=== PATIENT | male | born 1945 | race Caucasian/White ===

== ENCOUNTER → 2018-08-11 | Outpatient (CLI) | payer MEDICARE, MEDICAID ==
[~2018-08-11] MED LIST: BARIUM SUSPENSION 2.1% (VANILLA SILQ) 450 ML PO ONE
[2018-08-11 11:25] LABS: BASOPHILS % (AUTO) 1 % (0-10); EOSINOPHILS % (AUTO) 6 % (0-10); HEMATOCRIT 47 % (40-54); HEMOGLOBIN 14.8 G/DL (13.3-17.7); LYMPHOCYTES % (AUTO) 24 % (12-44); MEAN CORPUSCULAR HEMOGLOBIN 28 PG (25-34); MEAN CORPUSCULAR HGB CONC 32 G/DL (32-36); MEAN CORPUSCULAR VOLUME 89 FL (80-99); MEAN PLATELET VOLUME 9.4 FL (7.4-10.4); MONOCYTES % (AUTO) 6 % (0-12); NEUTROPHILS % (AUTO) 63 % (42-75); PLATELET COUNT 174 10^3/uL (130-400); RED CELL DISTRIBUTION WIDTH 16.1 % (10.0-14.5); WHITE BLOOD COUNT 9.1 10^3/uL (4.3-11.0)
[2018-08-11 11:26] LABS: BASOPHILS # (AUTO) 0.1 10^3/uL (0.0-0.1); EOSINOPHILS # (AUTO) 0.6 10^3/uL (0.0-0.3); LYMPHOCYTES # (AUTO) 2.2 X 10^3 (1.0-4.0); MONOCYTES # (AUTO) 0.6 X 10^3 (0.0-1.0); NEUTROPHILS # (AUTO) 5.7 X 10^3 (1.8-7.8)
[2018-08-11 12:17] LABS: POTASSIUM 5.4 MMOL/L (3.6-5.0)
[2018-08-11 12:18] LABS: BILIRUBIN,TOTAL 0.4 MG/DL (0.1-1.0); CALCIUM 9.1 MG/DL (8.5-10.1); CREATININE SERUM 2.17 MG/DL (0.60-1.30)
[2018-08-11 12:19] LABS: ALBUMIN 3.9 GM/DL (3.2-4.5); TOTAL PROTEIN 6.8 GM/DL (6.4-8.2)
--- NOTE | 2018-08-11 15:57 | Diagnostic Imaging Report ---
PROCEDURE: CT abdomen and pelvis without contrast. TECHNIQUE: Multiple contiguous axial images were obtained through the abdomen and pelvis without the use of intravenous contrast. Auto Exposure Controls were utilized during the CT exam to meet ALARA standards for radiation dose reduction. INDICATION: Colon cancer. FINDINGS: The previous CT abdomen/pelvis exam performed at [facility] in [place], [place] dated 08/14/2017 was reviewed. That study noted a stable appearance of bilateral hydronephrosis and hydroureter as well as thickening of the urinary bladder wall when compared to the previous exam of 12/10/2016. On this exam, the renal pelvis do appear more distended than on the prior exam. The left renal pelvis measures approximately 2.9 cm in maximum transverse diameter as opposed to 2.5 cm previously. The right renal pelvis is now estimated to be 2.5 cm in maximum diameter as opposed to 1.9 cm previously. The ureters are also slightly more distended than on the prior exam. There is persistent thickening of the urinary bladder wall. This finding is essentially no different. 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 The previous study also identified a stable-appearing mass along the posterior aspect of the gastric fundus. That mass is again identified and virtually unchanged in size or appearance. The mass measures approximately 4.2 x 4.5 cm. The bulky left adrenal gland noted previously is also unchanged. The right adrenal gland, the liver, the spleen, the pancreas, the gallbladder, the aorta and inferior vena cava also seem similar to the prior exam. The stomach is partially filled with oral contrast and consequently difficult to assess. There is no obvious gastric abnormality evident. There is no pelvic mass or free fluid collection noted. The prostate gland is unremarkable. There may be a few diverticula in the sigmoid colon, but there is no sign of acute diverticulitis. The appendix was not well visualized, but there are no indirect signs of acute appendicitis. As noted on the prior study, there is thinning of the anterior abdominal wall near the umbilicus. There is still no defect in the wall to indicate a hernia. The lung bases are generally clear. The bone windows show no sign of a fracture or of a destructive lesion. IMPRESSION: 1. The hydronephrosis of the kidneys seen previously is somewhat more pronounced on this exam. The ureters are also slightly more distended than on the prior exam. The thickened appearance of the bladder wall seen on the previous study is unchanged, however. The bladder diverticulum on the right also seems stable. 2. The mass in the left upper quadrant noted previously is stable in size and appearance. 3. There is no acute abnormality of the abdomen or pelvis noted. Dictated by: Dictated on workstation # [id number]
== END ==
LOC: RAD FS 10:45
PROVIDERS: ATTEND Internal Medicine Hematology & Oncology
DX: C18.4 Malignant neoplasm of transverse colon (principal)
CPT/HCPCS: 36415; 74176; 80053; 82378; 83615; 85025

== ENCOUNTER → 2018-08-18 | Outpatient (CLI) | payer MEDICARE, MEDICAID ==
[~2018-08-18] VITALS: Ht 170.2 cm; Wt 135.6 kg
[~2018-08-18] MED LIST changes: -BARIUM SUSPENSION 2.1% (VANILLA SILQ) 450 ML PO ONE; +CATHETER FLUSH 10 ML SYR IV PRN; +REGADENOSON 0.4 MG/5 ML SYR (LEXISCAN) IV ONE
== END ==
LOC: CARD 10:35 → EDUNIT# 11:00
PROVIDERS: ATTEND Nurse Practitioner Family
DX: R07.89 Other chest pain (principal); R06.09 Other forms of dyspnea; I10 Essential (primary) hypertension; E78.5 Hyperlipidemia, unspecified; G47.33 Obstructive sleep apnea (adult) (pediatric); M79.89 Other specified soft tissue disorders; E66.01 Morbid (severe) obesity due to excess calories
CPT/HCPCS: 78452; 93017; 93306

== ENCOUNTER → 2019-05-03 | Outpatient (CLI) | payer MEDICARE, MEDICAID ==
--- NOTE | 2019-05-03 15:09 | Diagnostic Imaging Report ---
PROCEDURE: US Renal Bilateral. TECHNIQUE: Multiple real-time grayscale images were obtained over the kidneys in various projections bilaterally. INDICATION: Chronic kidney disease, stage IV. FINDINGS: The right kidney measures 10.7 x 5.6 x 5.7 cm and the left kidney measures 12.4 x 6.4 x 6.0 cm. There appear to be bilateral renal cysts. Largest cyst on the right is 1.9 cm in the upper pole. Largest cyst on the left is approximately 3.6 cm in the lower pole. No definite calculi or hydronephrosis is seen. Cortical thickness and echogenicity is normal. Partially filled urinary bladder is unremarkable. The ureteral jets are not visualized. IMPRESSION: Bilateral renal cystic disease. No hydronephrosis is detected. Dictated by: Dictated on workstation # [id number]
== END ==
LOC: RAD 11:23
PROVIDERS: ATTEND Internal Medicine Critical Care Medicine
DX: N18.4 Chronic kidney disease, stage 4 (severe) (principal); N28.1 Cyst of kidney, acquired
CPT/HCPCS: 76770

== ENCOUNTER → 2019-08-30 | Outpatient (CLI) | payer MEDICARE, MEDICAID ==
[~2019-08-30] MED LIST changes: +BARIUM SUSPENSION 2.1% (VANILLA SILQ) 450 ML PO ONE; -CATHETER FLUSH 10 ML SYR IV PRN; -REGADENOSON 0.4 MG/5 ML SYR (LEXISCAN) IV ONE
--- NOTE | 2019-08-30 10:52 | Diagnostic Imaging Report ---
PROCEDURE: CT abdomen and pelvis without contrast. TECHNIQUE: Multiple contiguous axial images were obtained through the abdomen and pelvis without the use of intravenous contrast. Auto Exposure Controls were utilized during the CT exam to meet ALARA standards for radiation dose reduction. INDICATION: Colon carcinoma, followup. COMPARISON: 08/11/2018. FINDINGS: Imaging through the lung bases does show some linear atelectasis or scarring in the bilateral lower lobes and right middle lobe. No discrete liver mass is detected. The gallbladder is unremarkable. No biliary ductal dilatation is seen. The pancreas and spleen are unremarkable. The previously noted mass posterior to the stomach with some peripheral calcification measures approximately 4.8 x 3.8 cm. This is stable when measured by the same technique. The adrenal glands are stable. The bilateral hydroureteronephrosis appears stable. The ureters are somewhat tortuous. The bladder wall again just shows some trabeculation and thickening. There is a small bladder diverticulum again noted. The aorta is calcified but nonaneurysmal. No central retroperitoneal or mesenteric lymphadenopathy is identified. The small and large bowel loops are of normal caliber. There is no obstruction. There is no free fluid or fluid collection. The prostate is unremarkable. No pelvic lymphadenopathy is seen. IMPRESSION: Stable noncontrast CT abdomen and pelvis when compared with the prior examination from 08/11/2018. No new abnormality is detected. Dictated by: Dictated on workstation # [id number]
== END ==
LOC: RAD FS 09:19
PROVIDERS: ATTEND Internal Medicine Hematology & Oncology
DX: C18.4 Malignant neoplasm of transverse colon (principal)
CPT/HCPCS: 74176

== ENCOUNTER 2019-10-19 11:39 | Emergency (ER) | payer MEDICARE, MEDICAID ==
[~2019-10-19] VITALS: Ht 170.2 cm; Wt 125.5 kg
[2019-10-19] MEDS ORDERED: NS IV 500 ML 500 ML IV STA (11:43)
--- NOTE | 2019-10-19 11:50 | ED General ---
General Stated Complaint: WEAKNESS Source of Information: Patient, EMS, EMS Notes Reviewed, Old Records, RN/MD, RN Notes Reviewed History of Present Illness Date Seen by Provider: Oct 19, 2019 Time Seen by Provider: 11:40 Initial Comments This patient is a 74-year-old male that presents to the emergency department via EMS for generalized weakness. Patient states she just complains of weakness and fatigue over the past several days. Patient states he recently had pneumonia and has recently got over that presents complaining complaining of fatigue for the past few days. Patient denies have any cough congestion or fever at this time. Patient states she's had about a 20 pound weight loss in the past month. Patient has a history of cardiac disease. We'll do medical screening exam and evaluate treat further. Patient denies chest pain. Timing/Duration: 3-4 Days Severity: Mild Associated Systoms: Denies Symptoms; No Chest Pain, No Cough, No Diaphoresis, No Fever/Chills, No Headaches, No Loss of Appetite; Malaise; No Nausea/Vomiting, No Rash, No Seizure, No Shortness of Air, No Syncope; Weakness; No Other Allergies and Home Medications Allergies Coded Allergies: iodine (Unverified Allergy, Unknown, 08/11/18) morphine (Verified Allergy, Unknown, 10/19/19) Patient Home Medication List Home Medication List Reviewed: Yes Review of Systems Review of Systems Constitutional: No no symptoms reported; see HPI; No chills, No diaphoresis, No dizziness, No fever; malaise, weakness; No weight gain, No weight loss, No other EENTM: No see HPI, No no symptoms reported, No ear discharge, No hearing loss, No ear pain, No blurred vision, No double vision, No eye pain, No tearing, No vision loss, No dental problems, No hoarseness, No mouth pain, No mouth swelling, No epistaxis, No nose congestion, No nose pain, No throat pain, No throat swelling, No other Respiratory: No no symptoms reported, No see HPI, No cough, No dyspnea on exertion, No hemoptysis, No orthopnea, No phlegm, No short of breath, No stridor, No wheezing, No other Cardiovascular: No no symptoms reported, No see HPI, No chest pain, No edema, No Hx of Intervention, No palpitations, No syncope, No vascular heart diseas, No other Gastrointestinal: No RUQ, No LUQ, No RLQ, No LLQ, No no symptoms reported, No see HPI, No abdominal pain, No constipation, No diarrhea, No dysphagia, No hematemesis, No heartburn, No jaundice, No loss of appetite, No melena, No nausea, No vomiting, No other Genitourinary: No no symptoms reported, No see HPI, No decreased output, No discharge, No dysuria, No frequency, No hematuria, No hesitancy, No incontinence, No nocturia, No pain, No other Musculoskeletal: No no symptoms reported, No see HPI, No back pain, No gout, No joint pain, No joint swelling, No muscle pain, No muscle stiffness, No muscle cramps, No muscle twitching, No muscle weakness, No neck pain, No other Skin: No no symptoms reported, No see HPI, No change in color, No change in hair/nails, No dryness, No hx of skin cancer, No lesions, No lumps, No pruritus, No rash, No other All Other Systems Reviewed Negative Unless Noted: Yes Physical Exam Vital Signs Vital Signs - First Documented 10/19/19 12:00 Temp 36.4 Pulse 84 Resp 20 B/P (MAP) 99/55 (70) Pulse Ox 95 O2 Delivery Room Air Capillary Refill : Height, Weight, BMI Height: 5'7.00" Weight: 299lbs. 0.0oz. 135.361539xt; 46.8 BMI Method: General Appearance: No Apparent Distress, WD/WN HEENT: PERRL/EOMI, TMs Normal, Normal ENT Inspection, Pharynx Normal Neck: Full Range of Motion, Normal Inspection, Non Tender, Supple Respiratory: Chest Non Tender, Lungs Clear, Normal Breath Sounds, No Accessory Muscle Use, No Respiratory Distress Cardiovascular: Regular Rate, Rhythm, No Edema, No Gallop, No JVD, No Murmur, Normal Peripheral Pulses Gastrointestinal: Normal Bowel Sounds, No Organomegaly, No Pulsatile Mass, Non Tender, Soft Extremity: Normal Capillary Refill, Normal Inspection, Normal Range of Motion, Non Tender, No Calf Tenderness, No Pedal Edema Neurologic/Psychiatric: Alert, Oriented x3, No Motor/Sensory Deficits, Normal Mood/Affect Focused Exam Lactate Level 10/19/19 12:15: Lactic Acid Level 0.91 Lactic Acid Level Laboratory Tests Test 10/19/19 12:15 Lactic Acid Level 0.91 MMOL/L (0.50-2.00) Progress/Results/Core Measures Suspected Sepsis SIRS Temperature: Pulse: Respiratory Rate: Laboratory Tests 10/19/19 12:15: White Blood Count 12.2H Blood Pressure / Mean: 10/19/19 12:15: Lactic Acid Level 0.91 Laboratory Tests 10/19/19 12:15: Creatinine 3.43H, Platelet Count 169, Total Bilirubin 0.5 Results/Orders Lab Results Laboratory Tests Test 10/19/19 12:15 10/19/19 12:50 Range/Units White Blood Count 12.2 H 4.3-11.0 10^3/uL Red Blood Count 5.45 4.35-5.85 10^6/uL Hemoglobin 15.5 13.3-17.7 G/DL Hematocrit 47 40-54 % Mean Corpuscular Volume 85 80-99 FL Mean Corpuscular Hemoglobin 28 25-34 PG Mean Corpuscular Hemoglobin Concent 33 32-36 G/DL Red Cell Distribution Width 15.7 H 10.0-14.5 % Platelet Count 169 130-400 10^3/uL Mean Platelet Volume 9.5 7.4-10.4 FL Neutrophils (%) (Auto) 75 42-75 % Lymphocytes (%) (Auto) 14 12-44 % Monocytes (%) (Auto) 6 0-12 % Eosinophils (%) (Auto) 5 0-10 % Basophils (%) (Auto) 0 0-10 % Neutrophils # (Auto) 9.1 H 1.8-7.8 X 10^3 Lymphocytes # (Auto) 1.7 1.0-4.0 X 10^3 Monocytes # (Auto) 0.8 0.0-1.0 X 10^3 Eosinophils # (Auto) 0.6 H 0.0-0.3 10^3/uL Basophils # (Auto) 0.0 0.0-0.1 10^3/uL Sodium Level 134 L 135-145 MMOL/L Potassium Level 4.9 3.6-5.0 MMOL/L Chloride Level 99 98-107 MMOL/L Carbon Dioxide Level 17 L 21-32 MMOL/L Anion Gap 18 H 5-14 MMOL/L Blood Urea Nitrogen 125 *H 7-18 MG/DL Creatinine 3.43 H 0.60-1.30 MG/DL Estimat Glomerular Filtration Rate 18 BUN/Creatinine Ratio 36 Glucose Level 187 H 70-105 MG/DL Lactic Acid Level 0.91 0.50-2.00 MMOL/L Calcium Level 9.2 8.5-10.1 MG/DL Corrected Calcium 9.4 8.5-10.1 MG/DL Total Bilirubin 0.5 0.1-1.0 MG/DL Aspartate Amino Transf (AST/SGOT) 14 5-34 U/L Alanine Aminotransferase (ALT/SGPT) 47 0-55 U/L Alkaline Phosphatase 49 40-136 U/L Troponin I < 0.30 <0.30 NG/ML Pro-B-Type Natriuretic Peptide 227.8 H <75.0 PG/ML Total Protein 6.7 6.4-8.2 GM/DL Albumin 3.8 3.2-4.5 GM/DL Urine Color YELLOW Urine Clarity CLEAR Urine pH 5.5 5-9 Urine Specific [place] 1.020 1.016-1.022 Urine Protein 2+ H NEGATIVE Urine Glucose (UA) NEGATIVE NEGATIVE Urine Ketones NEGATIVE NEGATIVE Urine Nitrite NEGATIVE NEGATIVE Urine Bilirubin NEGATIVE NEGATIVE Urine Urobilinogen 0.2 < = 1.0 MG/DL Urine Leukocyte Esterase NEGATIVE NEGATIVE Urine RBC (Auto) 1+ H NEGATIVE Urine RBC 5-10 H /HPF Urine WBC 2-5 /HPF Urine Squamous Epithelial Cells 5-10 /HPF Urine Crystals NONE /LPF Urine Bacteria NEGATIVE /HPF Urine Casts PRESENT /LPF Urine Hyaline Casts 5-10 H /LPF Urine Mucus SMALL H /LPF Urine Culture Indicated NO My Orders Orders - HERMINIA ELIZABETH MD Ed Iv/Invasive Line Start (10/19/19 11:43) Blood Culture (10/19/19 11:43) Cbc With Automated Diff (10/19/19 11:43) Comprehensive Metabolic Panel (10/19/19 11:43) Urinalysis (10/19/19 11:43) Chest 1 View Ap/Pa Only (10/19/19 11:43) Ekg Tracing (10/19/19 11:43) Lactic Acid Analyzer (10/19/19 11:43) Ns Iv 500 Ml (Sodium Chloride 0.9%) (10/19/19 11:43) Troponin I Fs (10/19/19 11:43) Probnp Fs (10/19/19 11:43) Blood Culture (10/19/19 12:56) Ns Iv 1000 Ml (Sodium Chloride 0.9%) (10/19/19 13:29) Vital Signs/I&O 10/19/19 12:00 Temp 36.4 Pulse 84 Resp 20 B/P (MAP) 99/55 (70) Pulse Ox 95 O2 Delivery Room Air Capillary Refill : Progress Note : Time: 13:51 Progress Note Patient appears to have acute on chronic renal failure with a 20 pound weight loss be urinary and 125 creatinine 3.43. Patient is followed by Dr. Medina [facility] I don't [facility]. I have discussed at length with Dr. Naidu hospitalist. He is accepted this patient for transfer. Patient be transferred via EMS shortly. ECG Initial ECG Impression Date: Oct 19, 2019 Initial ECG Impression Time: 12:00 Initial ECG Rate: 70 Initial ECG Rhythm: Normal Sinus, PAC Initial ECG Intervals: QRS (RBBB) Initial ECG Impression: Nonspecific Changes, 1st Degree AV Block Comment Sinus rhythm with a few PACs prolonged WA interval consistent with first-degree heart block interventricular conduction delay possible right bundle branch block. Nonspecific ST changes. Heart rate 70 Departure Impression Primary Impression: Generalized weakness Additional Impressions: Acute on chronic renal failure Dehydration Disposition: 02 XFER SHT-TRM HOSP Condition: Stable Transfer Transfer Reason: Exceeds level of care Time Spoke to Accepting Phy: 13:[address] Naidu has accepted this patient for transfer to [facility]. Transfer Time: 13:54 Transfer Facility: [facility] Method of Transfer: EMS Departure-Patient Inst. Referrals: [facility] (PCP) Primary Care Physician MIKA KINSEY APRN (Family) Primary Care Physician HERMINIA ELIZABETH MD Oct 19, 2019 11:50
--- NOTE | 2019-10-19 12:30 | Diagnostic Imaging Report ---
INDICATION: Pneumonia. TIME OF EXAM: 12:19 PM No prior studies are available for comparison. Heart size normal. Lungs are hyperinflated consistent with COPD. No infiltrates are detected. No effusion or pneumothorax is identified. IMPRESSION: COPD. No acute feature is detected. Dictated by: Dictated on workstation # [id number]
[2019-10-19 13:07] LABS: EOSINOPHILS % (AUTO) 5 % (0-10); HEMATOCRIT 47 % (40-54); HEMOGLOBIN 15.5 G/DL (13.3-17.7); LYMPHOCYTES % (AUTO) 14 % (12-44); MEAN CORPUSCULAR HEMOGLOBIN 28 PG (25-34); MEAN CORPUSCULAR HGB CONC 33 G/DL (32-36); MEAN CORPUSCULAR VOLUME 85 FL (80-99); MEAN PLATELET VOLUME 9.5 FL (7.4-10.4); MONOCYTES % (AUTO) 6 % (0-12); NEUTROPHILS % (AUTO) 75 % (42-75); PLATELET COUNT 169 10^3/uL (130-400); RED CELL DISTRIBUTION WIDTH 15.7 % (10.0-14.5); WHITE BLOOD COUNT 12.2 10^3/uL (4.3-11.0)
[2019-10-19 13:08] LABS: BASOPHILS % (AUTO) 0 % (0-10); EOSINOPHILS # (AUTO) 0.6 10^3/uL (0.0-0.3); LYMPHOCYTES # (AUTO) 1.7 X 10^3 (1.0-4.0); MONOCYTES # (AUTO) 0.8 X 10^3 (0.0-1.0); NEUTROPHILS # (AUTO) 9.1 X 10^3 (1.8-7.8)
--- OUTSIDE RECORDS SUMMARY | 2019-10-19 13:15 | XMS REPORT ---
Author Author Alexis KINSEY Organization [facility] Address [address] [place] [address] Care Team Providers Care Site Acquisition Manager Name Role Phone MIKA KINSEY Unavailable PROBLEMS Type Condition ICD9-CM Code UFF91-IY Code Onset Dates Condition S tatus SNOMED Code Problem Tobacco use Z72.0 Oct, Active 82771 3000 Problem Hypothyroidism (acquired) E03.9 Nov, A ctive 56180855 Problem Allergic rhinitis due to animal hair and dander 477.2 Oct, Active 356261639108126 Problem Simple chronic bronchitis J41.0 Oct, A ctive 30017264 Problem JAMES on CPAP 327.23 Jan, Active 31104 009 Problem Hypothyroidism (acquired) 244.9 Nov, A ctive 65614790 Problem Dyslipidemia E78.5 11 Dec, 2016 Active 3709 01582 Problem JAMES on CPAP G47.33 Jan, Active 82027 009 Problem Simple chronic bronchitis 491.0 Oct, A ctive 50950942 Problem Dyslipidemia 272.4 11 Dec, 2016 Active 3709 17237 Problem Type 2 diabetes mellitus without complication 250.00 Oct, Active 036803644 Problem Malignant neoplasm of descending colon 153.2 1 8 Nov, 2016 Active 786649714 Problem Allergic rhinitis due to animal hair and dander J30.81 Oct, Active 487327839656103 Problem CKD (chronic kidney disease) N18.9 Oct, 201 7 Active 079561642 Problem Type 2 diabetes mellitus without complication E 11.9 Oct, Active 450494370 Problem Congestive heart failure I50.9 Oct, Ac tive 82674550 Problem Acute gout of right ankle M10.9 August, A ctive 69047843 Problem Chewing tobacco nicotine dependence, uncomplicated 305.1 Oct, Active 640533319 Problem Cigarette nicotine dependence, uncomplicated 305.1 Oct, Active 154363431 Problem Hyperlipidemia, unspecified hyperlipidemia type E7 8.5 Active 12799232 Problem Benign hypertension 401.1 Dec, Active 27775904 Problem JAMES (obstructive sleep apnea) G47.33 Active 31990109 Problem Congestive heart failure 428.0 Oct, Ac tive 41241453 Problem Tobacco use 305.1 Oct, Active 20256 3000 Problem Congestive heart failure, un specified HF chronicity, unspecified heart failure type I50.9 Active 53247695 Problem Stage 2 chronic kidney disease N18.2 Active 199496190 Problem Controlled type 2 diabetes m ellitus without complication, without long- term current use of insulin E11.9 Active 314688311 Problem Essential hypertension I10 Active 67744246 ALLERGIES No Information ENCOUNTERS Encounter Location Date Diagnosis [place] [address] [facility] [id number] [id number] 12 Sep, [address] [address] August, [address] [address] Jul, Acute pain of right shoulder M25.511 and Morbid obesity E66.01 [facility] [address] [facility] [id number] [address] [place] [id number] 10 Jul, 2018 Morbid obesity E66.01 ; Ches t discomfort R07.89 ; Exertional dyspnea R06.09 ; Essential hypertension I10 ; Hyperlipidemia, unspecified hyperlipidemia type E78.5 ; JAMES (obstructive sleep apnea) G47.33 and Swelling of both lower extremities M79.[address] [address] Jun, [address] [address] Jun, Morbid obesity E66.01 ; Hypertension, renal disease I12.9 and Controlled type 2 diabetes mellitus without complication, without long-term current use of insulin E11.[address] [address] May, Morbid obesity E66.01 ; Hypertension, renal disease I12.9 ; Controlled type 2 diabetes mellitus without complication, without long-term current use of insulin E11.9 and Congestive heart failure, unspecified HF chronicity, unspecified heart failure type I50.9 [facility] [address] [place] [address] Apr, Lower extremity edema R60.0 and BMI 45.0-49.9, adult Z68.[address] [address] Apr, BMI 45.0-49.9, adult Z68.42 ; Congestive heart failure, unspecified HF chronicity, unspecified heart failure type I50.9 ; Edema of lower extremity R60.0 ; Controlled type 2 diabetes mellitus without complication, without long-term current use of insulin E11.9 ; Stage 2 chronic kidney disease N18.2 ; Cancer of left colon C18.6 and Essential hypertension I10 [address] [address] Apr, [facility] [address] [facility] [id number] [address] [place] [phone] Mar, [facility] [address] [id number] [address] [place] [id number] Feb, [facility] [address] [facility] [id number] [address] [place] [address] Jan, [facility] [address] [facility] [id number] [address] [place] [id number] Jan, [facility] [address] [facility] [id number] [address] [place] [phone] Jan, IMMUNIZATIONS No Known Immunizations SOCIAL HISTORY Never Assessed REASON FOR VISIT PLAN OF CARE VITAL SIGNS MEDICATIONS Unknown Medications RESULTS No Results PROCEDURES No Known procedures INSTRUCTIONS MEDICATIONS ADMINISTERED No Known Medications MEDICAL (GENERAL) HISTORY Type Description Date Medical History type II diabetes Medical History congestive heart failure Medical History malignant neoplasm of descending colon Medical History dyslipidemia Medical History Hypertension Medical History Chronic Kidney Disease Medical History Hypothyroidism Medical History hx Gout Medical History JAMES on CPAP Medical History Acute gout of right ankle Surgical History colon resection Hospitalization History surgery
--- OUTSIDE RECORDS SUMMARY | 2019-10-19 13:15 | XMS REPORT | Continuity of Care Document ---
Author Organization Unknown Address Unknown Phone Unavailable Allergies Active Description Code Type Severity Reaction Onset Reported/Identified Relationship to Patient Clinical Status Yes iodine [id number] Drug Allergy Unknown N/A 08/11/2018 Medications There is no data. 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 08/17/2018 NADIA SOTELO ANA MARÍA V Ot 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 08/19/2018 NADIA SOTELO ANA MARÍA V Ot 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 08/19/2018 NADIA SOTELO ANA MARÍA V Ot 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 08/19/2018 JOSEPHINE MARTINEZ MAP AND CHART MOUNTER Ot E66.01 MORBID (SEVERE) OBESITY DUE TO EXCESS CA 08/19/2018 JOSEPHINE MARTINEZ MAP AND CHART MOUNTER Ot E78.5 HYPERLIPIDEMIA, UNSPECIFIED 08/19/2018 JOSEPHINE MARTINEZ MAP AND CHART MOUNTER Ot G47.33 OBSTRUCTIVE SLEEP APNEA (ADULT) (PEDIATR 08/19/2018 JOSEPHINE MARTINEZ MAP AND CHART MOUNTER Ot I 10 ESSENTIAL (PRIMARY) HYPERTENSION 08/19/2018 JOSEPHINE MARTINEZ MAP AND CHART MOUNTER Ot M79.89 OTHER SPECIFIED SOFT TISSUE DISORDERS 08/19/2018 JOSEPHINE MARTINEZ MAP AND CHART MOUNTER Ot R06.09 OTHER FORMS OF DYSPNEA 08/19/2018 JOSEPHINE MARTINEZ MAP AND CHART MOUNTER Ot R07.89 OTHER CHEST PAIN 08/26/2018 NADIA SOTELO ANA MARÍA V Ot 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 09/04/2018 JOSEPHINE MARTINEZ MAP AND CHART MOUNTER Ot E66.01 MORBID (SEVERE) OBESITY DUE TO EXCESS CA 09/04/2018 JOSEPHINE MARTINEZ MAP AND CHART MOUNTER Ot E78.5 HYPERLIPIDEMIA, UNSPECIFIED 09/04/2018 BAIMA, JOSEPHINE L MAP AND CHART MOUNTER Ot G47.33 OBSTRUCTIVE SLEEP APNEA (ADULT) (PEDIATR 09/04/2018 BAIMA, JOSEPHINE L MAP AND CHART MOUNTER Ot I 10 ESSENTIAL (PRIMARY) HYPERTENSION 09/04/2018 BAIMA, JOSEPHINE L MAP AND CHART MOUNTER Ot M79.89 OTHER SPECIFIED SOFT TISSUE DISORDERS 09/04/2018 BAIMA, JOSEPHINE L MAP AND CHART MOUNTER Ot R06.09 OTHER FORMS OF DYSPNEA 09/04/2018 BAIMA, JOSEPHINE L MAP AND CHART MOUNTER Ot R07.89 OTHER CHEST PAIN 04/30/2019 NADIA SOTELO, ANA MARÍA V Ot 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 04/30/2019 BAIMA, JOSEPHINE L MAP AND CHART MOUNTER Ot E66.01 MORBID (SEVERE) OBESITY DUE TO EXCESS CA 04/30/2019 BAIMA, JOSEPHINE L MAP AND CHART MOUNTER Ot E78.5 HYPERLIPIDEMIA, UNSPECIFIED 04/30/2019 BAIMA, JOSEPHINE L MAP AND CHART MOUNTER Ot G47.33 OBSTRUCTIVE SLEEP APNEA (ADULT) (PEDIATR 04/30/2019 BAIMA, JOSEPHINE L MAP AND CHART MOUNTER Ot I 10 ESSENTIAL (PRIMARY) HYPERTENSION 04/30/2019 BAIMA, JOSEPHINE L MAP AND CHART MOUNTER Ot M79.89 OTHER SPECIFIED SOFT TISSUE DISORDERS 04/30/2019 BAIMA, JOSEPHINE L MAP AND CHART MOUNTER Ot R06.09 OTHER FORMS OF DYSPNEA 04/30/2019 BAIMA, JOSEPHINE L MAP AND CHART MOUNTER Ot R07.89 OTHER CHEST PAIN 04/30/2019 NADIA SOTELO, ANA MARÍA V Ot 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 04/30/2019 BAIMA, JOSEPHINE L MAP AND CHART MOUNTER Ot E66.01 MORBID (SEVERE) OBESITY DUE TO EXCESS CA 04/30/2019 BAIMA, JOSEPHINE L MAP AND CHART MOUNTER Ot E78.5 HYPERLIPIDEMIA, UNSPECIFIED 04/30/2019 BAIMA, JOSEPHINE L MAP AND CHART MOUNTER Ot G47.33 OBSTRUCTIVE SLEEP APNEA (ADULT) (PEDIATR 04/30/2019 BAIMA, JOSEPHINE L MAP AND CHART MOUNTER Ot I 10 ESSENTIAL (PRIMARY) HYPERTENSION 04/30/2019 BAIMA, JOSEPHINE L MAP AND CHART MOUNTER Ot M79.89 OTHER SPECIFIED SOFT TISSUE DISORDERS 04/30/2019 BAIMA, JOSEPHINE L MAP AND CHART MOUNTER Ot R06.09 OTHER FORMS OF DYSPNEA 04/30/2019 BAIMA, JOSEPHINE L MAP AND CHART MOUNTER Ot R07.89 OTHER CHEST PAIN 04/30/2019 NADIA SOTELO, ANA MARÍA V Ot 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 04/30/2019 BAIMA, JOSEPHINE L MAP AND CHART MOUNTER Ot E66.01 MORBID (SEVERE) OBESITY DUE TO EXCESS CA 04/30/2019 BAIMA, JOSEPHINE L MAP AND CHART MOUNTER Ot E78.5 HYPERLIPIDEMIA, UNSPECIFIED 04/30/2019 BAIMA, JOSEPHINE L MAP AND CHART MOUNTER Ot G47.33 OBSTRUCTIVE SLEEP APNEA (ADULT) (PEDIATR 04/30/2019 BAIMA, JOSEPHINE L MAP AND CHART MOUNTER Ot I 10 ESSENTIAL (PRIMARY) HYPERTENSION 04/30/2019 BAIMA, JOSEPHINE L MAP AND CHART MOUNTER Ot M79.89 OTHER SPECIFIED SOFT TISSUE DISORDERS 04/30/2019 BAIMA, JOSEPHINE L MAP AND CHART MOUNTER Ot R06.09 OTHER FORMS OF DYSPNEA 04/30/2019 BAIMA, JOSEPHINE L MAP AND CHART MOUNTER Ot R07.89 OTHER CHEST PAIN 05/03/2019 NADIA SOTELO, ANA MARÍA V Ot 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 05/03/2019 BAIMA, JOSEPHINE L MAP AND CHART MOUNTER Ot E66.01 MORBID (SEVERE) OBESITY DUE TO EXCESS CA 05/03/2019 BAIMA, JOSEPHINE L MAP AND CHART MOUNTER Ot E78.5 HYPERLIPIDEMIA, UNSPECIFIED 05/03/2019 BAIMA, JOSEPHINE L MAP AND CHART MOUNTER Ot G47.33 OBSTRUCTIVE SLEEP APNEA (ADULT) (PEDIATR 05/03/2019 BAIMA, JOSEPHINE L MAP AND CHART MOUNTER Ot I 10 ESSENTIAL (PRIMARY) HYPERTENSION 05/03/2019 BAIMA, JOSEPHINE L MAP AND CHART MOUNTER Ot M79.89 OTHER SPECIFIED SOFT TISSUE DISORDERS 05/03/2019 BAIMA, JOSEPHINE L MAP AND CHART MOUNTER Ot R06.09 OTHER FORMS OF DYSPNEA 05/03/2019 BAIMA, JOSEPHINE L MAP AND CHART MOUNTER Ot R07.89 OTHER CHEST PAIN 05/03/2019 NADIA SOTELO, ANA MARÍA V Ot 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 05/03/2019 BAIMA, JOSEPHINE L MAP AND CHART MOUNTER Ot E66.01 MORBID (SEVERE) OBESITY DUE TO EXCESS CA 05/03/2019 BAIMA, JOSEPHINE L MAP AND CHART MOUNTER Ot E78.5 HYPERLIPIDEMIA, UNSPECIFIED 05/03/2019 BAIMA, JOSEPHINE L MAP AND CHART MOUNTER Ot G47.33 OBSTRUCTIVE SLEEP APNEA (ADULT) (PEDIATR 05/03/2019 BAIMA, JOSEPHINE L MAP AND CHART MOUNTER Ot I 10 ESSENTIAL (PRIMARY) HYPERTENSION 05/03/2019 BAIMA, JOSEPHINE L MAP AND CHART MOUNTER Ot M79.89 OTHER SPECIFIED SOFT TISSUE DISORDERS 05/03/2019 BAIMA, JOSEPHINE L MAP AND CHART MOUNTER Ot R06.09 OTHER FORMS OF DYSPNEA 05/03/2019 BAIMA, JOSEPHINE L MAP AND CHART MOUNTER Ot R07.89 OTHER CHEST PAIN 05/05/2019 NATHANAEL LARSON MD U Ot N18. 4 CHRONIC KIDNEY DISEASE, STAGE 4 (SEVERE) 05/05/2019 NATHANAEL LARSON MD U Ot N28. 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 08/16/2019 BAIMA, JOSEPHINE L MAP AND CHART MOUNTER Ot E66.01 MORBID (SEVERE) OBESITY DUE TO EXCESS CA 08/16/2019 BAIMA, JOSEPHINE L MAP AND CHART MOUNTER Ot E78.5 HYPERLIPIDEMIA, UNSPECIFIED 08/16/2019 BAIMA, JOSEPHINE L MAP AND CHART MOUNTER Ot G47.33 OBSTRUCTIVE SLEEP APNEA (ADULT) (PEDIATR 08/16/2019 BAIMA, JOSEPHINE L MAP AND CHART MOUNTER Ot I 10 ESSENTIAL (PRIMARY) HYPERTENSION 08/16/2019 BAIMA, JOSEPHINE L MAP AND CHART MOUNTER Ot M79.89 OTHER SPECIFIED SOFT TISSUE DISORDERS 08/16/2019 BAIMA, JOSEPHINE L MAP AND CHART MOUNTER Ot R06.09 OTHER FORMS OF DYSPNEA 08/16/2019 BAIMA, JOSEPHINE L MAP AND CHART MOUNTER Ot R07.89 OTHER CHEST PAIN 08/16/2019 NATHANAEL LARSON MD U Ot N18. 4 CHRONIC KIDNEY DISEASE, STAGE 4 (SEVERE) 08/16/2019 NATHANAEL LARSON MD Ot N28. 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 08/16/2019 BAIMA, JOSEPHINE L MAP AND CHART MOUNTER Ot E66.01 MORBID (SEVERE) OBESITY DUE TO EXCESS CA 08/16/2019 BAIMA, JOSEPHINE L MAP AND CHART MOUNTER Ot E78.5 HYPERLIPIDEMIA, UNSPECIFIED 08/16/2019 BAIMA, JOSEPHINE L MAP AND CHART MOUNTER Ot G47.33 OBSTRUCTIVE SLEEP APNEA (ADULT) (PEDIATR 08/16/2019 BAIMA, JOSEPHINE L MAP AND CHART MOUNTER Ot I 10 ESSENTIAL (PRIMARY) HYPERTENSION 08/16/2019 BAIMA, JOSEPHINE L MAP AND CHART MOUNTER Ot M79.89 OTHER SPECIFIED SOFT TISSUE DISORDERS 08/16/2019 BAIMA, JOSEPHINE L MAP AND CHART MOUNTER Ot R06.09 OTHER FORMS OF DYSPNEA 08/16/2019 BAIMA, JOSEPHINE L MAP AND CHART MOUNTER Ot R07.89 OTHER CHEST PAIN 08/16/2019 NATHANAEL LARSON MD U Ot N18. 4 CHRONIC KIDNEY DISEASE, STAGE 4 (SEVERE) 08/16/2019 NATHANAEL LARSON MD U Ot N28. 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 08/26/2019 BAIMA, JOSEPHINE L MAP AND CHART MOUNTER Ot E66.01 MORBID (SEVERE) OBESITY DUE TO EXCESS CA 08/26/2019 BAIMA, JOSEPHINE L MAP AND CHART MOUNTER Ot E78.5 HYPERLIPIDEMIA, UNSPECIFIED 08/26/2019 BAIMA, JOSEPHINE L MAP AND CHART MOUNTER Ot G47.33 OBSTRUCTIVE SLEEP APNEA (ADULT) (PEDIATR 08/26/2019 BAIMA, JOSEPHINE L MAP AND CHART MOUNTER Ot I 10 ESSENTIAL (PRIMARY) HYPERTENSION 08/26/2019 BAIMA, JOSEPHINE L MAP AND CHART MOUNTER Ot M79.89 OTHER SPECIFIED SOFT TISSUE DISORDERS 08/26/2019 BAIMA, JOSEPHINE L MAP AND CHART MOUNTER Ot R06.09 OTHER FORMS OF DYSPNEA 08/26/2019 BAIMA, JOSEPHINE L MAP AND CHART MOUNTER Ot R07.89 OTHER CHEST PAIN 08/26/2019 NATHANAEL LARSON MD U Ot N18. 4 CHRONIC KIDNEY DISEASE, STAGE 4 (SEVERE) 08/26/2019 NATHANAEL LARSON MD U Ot N28. 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 08/26/2019 BAIMA, JOSEPHINE L MAP AND CHART MOUNTER Ot E66.01 MORBID (SEVERE) OBESITY DUE TO EXCESS CA 08/26/2019 BAIMA, JOSEPHINE L MAP AND CHART MOUNTER Ot E78.5 HYPERLIPIDEMIA, UNSPECIFIED 08/26/2019 BAIMA, JOSEPHINE L MAP AND CHART MOUNTER Ot G47.33 OBSTRUCTIVE SLEEP APNEA (ADULT) (PEDIATR 08/26/2019 BAIMA, JOSEPHINE L MAP AND CHART MOUNTER Ot I 10 ESSENTIAL (PRIMARY) HYPERTENSION 08/26/2019 BAIMA, JOSEPHINE L MAP AND CHART MOUNTER Ot M79.89 OTHER SPECIFIED SOFT TISSUE DISORDERS 08/26/2019 BAIMA, JOSEPHINE L MAP AND CHART MOUNTER Ot R06.09 OTHER FORMS OF DYSPNEA 08/26/2019 BAIMA, JOSEPHINE L MAP AND CHART MOUNTER Ot R07.89 OTHER CHEST PAIN 08/26/2019 NATHANAEL LARSON MD U Ot N18. 4 CHRONIC KIDNEY DISEASE, STAGE 4 (SEVERE) 08/26/2019 NATHANAEL LARSON MD U Ot N28. 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 08/30/2019 BAIMA, JOSEPHINE L MAP AND CHART MOUNTER Ot E66.01 MORBID (SEVERE) OBESITY DUE TO EXCESS CA 08/30/2019 BAIMA, JOSEPHINE L MAP AND CHART MOUNTER Ot E78.5 HYPERLIPIDEMIA, UNSPECIFIED 08/30/2019 BAIMA, JOSEPHINE L MAP AND CHART MOUNTER Ot G47.33 OBSTRUCTIVE SLEEP APNEA (ADULT) (PEDIATR 08/30/2019 BAIMA, JOSEPHINE L MAP AND CHART MOUNTER Ot I 10 ESSENTIAL (PRIMARY) HYPERTENSION 08/30/2019 BAIMA, JOSEPHINE L MAP AND CHART MOUNTER Ot M79.89 OTHER SPECIFIED SOFT TISSUE DISORDERS 08/30/2019 BAIMA, JOSEPHINE L MAP AND CHART MOUNTER Ot R06.09 OTHER FORMS OF DYSPNEA 08/30/2019 BAIMA, JOSEPHINE L MAP AND CHART MOUNTER Ot R07.89 OTHER CHEST PAIN 08/30/2019 NATHANAEL LARSON MD Ot N18. 4 CHRONIC KIDNEY DISEASE, STAGE 4 (SEVERE) 08/30/2019 NATHANAEL LARSON MD U Ot N28. 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 08/30/2019 BAIMA, JOSEPHINE L MAP AND CHART MOUNTER Ot E66.01 MORBID (SEVERE) OBESITY DUE TO EXCESS CA 08/30/2019 BAIMA, JOSEPHINE L MAP AND CHART MOUNTER Ot E78.5 HYPERLIPIDEMIA, UNSPECIFIED 08/30/2019 BAIMA, JOSEPHINE L MAP AND CHART MOUNTER Ot G47.33 OBSTRUCTIVE SLEEP APNEA (ADULT) (PEDIATR 08/30/2019 BAIMA, JOSEPHINE L MAP AND CHART MOUNTER Ot I 10 ESSENTIAL (PRIMARY) HYPERTENSION 08/30/2019 BAIMA, JOSEPHINE L MAP AND CHART MOUNTER Ot M79.89 OTHER SPECIFIED SOFT TISSUE DISORDERS 08/30/2019 BAIMA, JOSEPHINE L MAP AND CHART MOUNTER Ot R06.09 OTHER FORMS OF DYSPNEA 08/30/2019 BAIMA, JOSEPHINE L MAP AND CHART MOUNTER Ot R07.89 OTHER CHEST PAIN 08/30/2019 NATHANAEL LARSON MD U Ot N18. 4 CHRONIC KIDNEY DISEASE, STAGE 4 (SEVERE) 08/30/2019 NATHANAEL LARSON MD U Ot N28. 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 08/30/2019 BAIMA, JOSEPHINE L MAP AND CHART MOUNTER Ot E66.01 MORBID (SEVERE) OBESITY DUE TO EXCESS CA 08/30/2019 BAIMA, JOSEPHINE L MAP AND CHART MOUNTER Ot E78.5 HYPERLIPIDEMIA, UNSPECIFIED 08/30/2019 BAIMA, JOSEPHINE L MAP AND CHART MOUNTER Ot G47.33 OBSTRUCTIVE SLEEP APNEA (ADULT) (PEDIATR 08/30/2019 BAIMA, JOSEPHINE L MAP AND CHART MOUNTER Ot I 10 ESSENTIAL (PRIMARY) HYPERTENSION 08/30/2019 BAIMA, JOSEPHINE L MAP AND CHART MOUNTER Ot M79.89 OTHER SPECIFIED SOFT TISSUE DISORDERS 08/30/2019 BAIMA, JOSEPHINE L MAP AND CHART MOUNTER Ot R06.09 OTHER FORMS OF DYSPNEA 08/30/2019 BAIMA, JOSEPHINE L MAP AND CHART MOUNTER Ot R07.89 OTHER CHEST PAIN 08/30/2019 NATHANAEL LARSON MD U Ot N18. 4 CHRONIC KIDNEY DISEASE, STAGE 4 (SEVERE) 08/30/2019 NATHANAEL LARSON MD U Ot N28. 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 08/30/2019 BAIMA, JOSEPHINE L MAP AND CHART MOUNTER Ot E66.01 MORBID (SEVERE) OBESITY DUE TO EXCESS CA 08/30/2019 BAIMA, JOSEPHINE L MAP AND CHART MOUNTER Ot E78.5 HYPERLIPIDEMIA, UNSPECIFIED 08/30/2019 BAIMA, JOSEPHINE L MAP AND CHART MOUNTER Ot G47.33 OBSTRUCTIVE SLEEP APNEA (ADULT) (PEDIATR 08/30/2019 BAIMA, JOSEPHINE L MAP AND CHART MOUNTER Ot I 10 ESSENTIAL (PRIMARY) HYPERTENSION 08/30/2019 BAIMA, JOSEPHINE L MAP AND CHART MOUNTER Ot M79.89 OTHER SPECIFIED SOFT TISSUE DISORDERS 08/30/2019 BAIMA, JOSEPHINE L MAP AND CHART MOUNTER Ot R06.09 OTHER FORMS OF DYSPNEA 08/30/2019 BAIMA, JOSEPHINE L MAP AND CHART MOUNTER Ot R07.89 OTHER CHEST PAIN 08/30/2019 NATHANAEL LARSON MD U Ot N18. 4 CHRONIC KIDNEY DISEASE, STAGE 4 (SEVERE) 08/30/2019 NATHANAEL LARSON MD U Ot N28. 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 09/09/2019 BAIMA, JOSEPHINE L MAP AND CHART MOUNTER Ot E66.01 MORBID (SEVERE) OBESITY DUE TO EXCESS CA 09/09/2019 JOSEPHINE MARTINEZ MAP AND CHART MOUNTER Ot E78.5 HYPERLIPIDEMIA, UNSPECIFIED 09/09/2019 JOSEPHINE MARTINEZ MAP AND CHART MOUNTER Ot G47.33 OBSTRUCTIVE SLEEP APNEA (ADULT) (PEDIATR 09/09/2019 JOSEPHINE MARTINEZ MAP AND CHART MOUNTER Ot I 10 ESSENTIAL (PRIMARY) HYPERTENSION 09/09/2019 JOSEPHINE MARTINEZ MAP AND CHART MOUNTER Ot M79.89 OTHER SPECIFIED SOFT TISSUE DISORDERS 09/09/2019 JOSEPHINE MARTINEZ MAP AND CHART MOUNTER Ot R06.09 OTHER FORMS OF DYSPNEA 09/09/2019 JOSEPHINE MRATINEZ MAP AND CHART MOUNTER Ot R07.89 OTHER CHEST PAIN 09/09/2019 NADIA SOTELO, ANA MARÍA V Ot 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 4 CHRONIC KIDNEY DISEASE, STAGE 4 (SEVERE) 09/09/2019 NATHANAEL LARSON MD U Ot N28. 1 CYST OF KIDNEY, ACQUIRED 10/05/2019 NADIA SOETLO, ANA MARÍA V Ot 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 Procedures There is no data. Results Test Result Range LIPID PANEL - 06/26/18 07:34 CHOLESTEROL, TOTAL TNP mg/dL NRG HDL CHOLESTEROL TNP mg/dL NRG TRIGLYCERIDES TNP mg/dL NRG LDL-CHOLESTEROL TNP mg/dL (calc) NRG CHOL/HDLC RATIO TNP (calc) NRG NON HDL CHOLESTEROL TNP mg/dL (calc) NRG CMP - 06/26/18 07:34 GLUCOSE TNP mg/dL NRG CBC - 06/26/18 07:34 WHITE BLOOD CELL COUNT 7.9 Thousand/uL 3 .8-10.8 RED BLOOD CELL COUNT 4.86 Million/uL 4.2 0-5.80 HEMOGLOBIN 13.9 g/dL 13.2-17.1 HEMATOCRIT 41.2 % 38.5-50.0 MCV 84.8 fL 80.0-100.0 MCH 28.6 pg 27.0-33.0 MCHC 33.7 g/dL 32.0-36.0 RDW 14.7 % 11.0-15.0 PLATELET COUNT 158 Thousand/uL 140-400 MPV 9.9 fL 7.5-12.5 ABSOLUTE NEUTROPHILS 4716 cells/uL 1500- 7800 ABSOLUTE LYMPHOCYTES 1857 cells/uL 850-3 900 ABSOLUTE MONOCYTES 640 cells/uL 200-950 ABSOLUTE EOSINOPHILS 640 cells/uL 15-500 ABSOLUTE BASOPHILS 47 cells/uL 0-200 NEUTROPHILS 59.7 % NRG LYMPHOCYTES 23.5 % NRG MONOCYTES 8.1 % NRG EOSINOPHILS 8.1 % NRG BASOPHILS 0.6 % NRG TSH - 06/26/18 07:34 TSH TNP mIU/L NRG A1C - 06/26/18 07:34 HEMOGLOBIN A1c 6.2 % of total Hgb <5.7 TSH - 06/26/18 09:14 TSH 0.99 mIU/L 0.40-4.50 Complete blood count (CBC) with automate d white blood cell (WBC) differential - 08/11/18 11:08 Blood leukocytes automated count (number/volume) 9.1 10*3/uL 4.3-11.0 Blood erythrocytes automated count (number/volume) 5.22 10*6/uL 4.35-5.85 Venous blood hemoglobin measurement (mass/volume) 14.8 g/dL 13.3-17.7 Blood hematocrit (volume fraction) 47 % 40-54 Automated erythrocyte mean corpuscular volume 89 [ foz_us] 80-99 Automated erythrocyte mean corpuscular h emoglobin (mass per erythrocyte) 28 pg 25-34 Automated erythrocyte mean corpuscular h emoglobin concentration measurement (mass/volume) 32 g/dL 32-36 Automated erythrocyte distribution width ratio 16. 1 % 10.0- 14.5 Automated blood platelet count (count/volume) 174 10*3/uL 130-400 Automated blood platelet mean volume measurement 9.4 [foz_us] 7.4-10.4 Automated blood neutrophils/100 leukocytes 63 % 42-75 Automated blood lymphocytes/100 leukocytes 24 % 12-44 Blood monocytes/100 leukocytes 6 % 0-12 Automated blood eosinophils/100 leukocytes 6 % 0-10 Automated blood basophils/100 leukocytes 1 % 0-10 Blood neutrophils automated count (number/volume) 5.7 10*3 1.8-7.8 Blood lymphocytes automated count (number/volume) 2.2 10*3 1.0-4.0 Blood monocytes automated count (number/volume) 0. 6 10*3 0.0-1.0 Automated eosinophil count 0.6 10*3/uL 0 .0-0.3 Automated blood basophil count (count/volume) 0.1 10*3/uL 0.0-0.1 Comprehensive metabolic panel - 08/11/18 11:08 Serum or plasma sodium measurement (moles/volume) 136 mmol/L 135-145 Serum or plasma potassium measurement (moles/volume) 5.4 mmol/L 3.6-5.0 Serum or plasma chloride measurement (moles/volume) 103 mmol/L 98-107 Carbon dioxide 19 mmol/L 21-32 Serum or plasma anion gap determination (moles/volume) 14 mmol/L 5-14 Serum or plasma urea nitrogen measurement (mass/volume ) 33 mg/dL 7-18 Serum or plasma creatinine measurement (mass/volume) 2.17 mg/dL 0.60-1.30 Serum or plasma urea nitrogen/creatinine mass ratio 15 NRG Serum or plasma creatinine measurement w ith calculation of estimated glomerular filtration rate 30 NRG Serum or plasma glucose measurement (mass/volume) 131 mg/dL 70-105 Serum or plasma calcium measurement (mass/volume) 9.1 mg/dL 8.5-10.1 Serum or plasma total bilirubin measurement (mass/volu me) 0.4 mg/dL 0.1-1.0 Serum or plasma alkaline phosphatase tex surement (enzymatic activity/volume) 60 U/L 40-136 Serum or plasma aspartate aminotransfera se measurement (enzymatic activity/volume) 11 U/L 5-34 Serum or plasma alanine aminotransferase measurement (enzymatic activity/volume) 15 U/L 0-55 Serum or plasma protein measurement (mass/volume) 6.8 g/dL 6.4-8.2 Serum or plasma albumin measurement (mass/volume) 3.9 g/dL 3.2-4.5 CALCIUM CORRECTED 9.2 mg/dL 8.5-10.1 Lactate dehydrogenase 1 [enzymatic activ ity/volume] in serum or plasma - 08/11/18 11:08 Lactate dehydrogenase 1 [enzymatic activ ity/volume] in serum or plasma 283 U/L 125-220 Serum ragweed IgE antibody assay - 08/11 11:08 [id number] 0.7 % 0.0-5.0 CBC - 06/28/19 09:01 WHITE BLOOD CELL COUNT 9.5 Thousand/uL 3 .8-10.8 RED BLOOD CELL COUNT 5.56 Million/uL 4.2 0-5.80 HEMOGLOBIN 16.2 g/dL 13.2-17.1 HEMATOCRIT 49.2 % 38.5-50.0 MCV 88.5 fL 80.0-100.0 MCH 29.1 pg 27.0-33.0 MCHC 32.9 g/dL 32.0-36.0 RDW 14.2 % 11.0-15.0 PLATELET COUNT 175 Thousand/uL 140-400 MPV 9.7 fL 7.5-12.5 ABSOLUTE NEUTROPHILS 6422 cells/uL 1500- 7800 ABSOLUTE LYMPHOCYTES 1881 cells/uL 850-3 900 ABSOLUTE MONOCYTES 618 cells/uL 200-950 ABSOLUTE EOSINOPHILS 504 cells/uL 15-500 ABSOLUTE BASOPHILS 76 cells/uL 0-200 NEUTROPHILS 67.6 % NRG LYMPHOCYTES 19.8 % NRG MONOCYTES 6.5 % NRG EOSINOPHILS 5.3 % NRG BASOPHILS 0.8 % NRG CMP - 09/01/19 09:00 GLUCOSE 126 mg/dL 65-99 UREA NITROGEN (BUN) 38 mg/dL 7-25 CREATININE 2.55 mg/dL 0.70-1.18 eGFR NON-AFR. SAUDI [place] 24 mL/min/1.73m2 > OR = 60 eGFR 27 mL/min/1.73m2 > OR = 60 BUN/CREATININE RATIO 15 (calc) 6-22 SODIUM 141 mmol/L 135-146 POTASSIUM 4.9 mmol/L 3.5-5.3 CHLORIDE 109 mmol/L 98-110 CARBON DIOXIDE 26 mmol/L 20-32 CALCIUM 9.0 mg/dL 8.6-10.3 PROTEIN, TOTAL 6.0 g/dL 6.1-8.1 ALBUMIN 3.7 g/dL 3.6-5.1 GLOBULIN 2.3 g/dL (calc) 1.9-3.7 ALBUMIN/GLOBULIN RATIO 1.6 (calc) 1.0-2. 5 BILIRUBIN, TOTAL 0.4 mg/dL 0.2-1.2 ALKALINE PHOSPHATASE 62 U/L 35-144 AST 14 U/L 10-35 ALT 27 U/L 9-46 Complete blood count (CBC) with automate d white blood cell (WBC) differential - 10/19/19 12:15 Blood leukocytes automated count (number/volume) 12.2 10*3/uL 4.3-11.0 Blood erythrocytes automated count (number/volume) 5.45 10*6/uL 4.35-5.85 Venous blood hemoglobin measurement (mass/volume) 15.5 g/dL 13.3-17.7 Blood hematocrit (volume fraction) 47 % 40-54 Automated erythrocyte mean corpuscular volume 85 [ foz_us] 80-99 Automated erythrocyte mean corpuscular h emoglobin (mass per erythrocyte) 28 pg 25-34 Automated erythrocyte mean corpuscular h emoglobin concentration measurement (mass/volume) 33 g/dL 32-36 Automated erythrocyte distribution width ratio 15. 7 % 10.0- 14.5 Automated blood platelet count (count/volume) 169 10*3/uL 130-400 Automated blood platelet mean volume measurement 9.5 [foz_us] 7.4-10.4 Automated blood neutrophils/100 leukocytes 75 % 42-75 Automated blood lymphocytes/100 leukocytes 14 % 12-44 Blood monocytes/100 leukocytes 6 % 0-12 Automated blood eosinophils/100 leukocytes 5 % 0-10 Automated blood basophils/100 leukocytes 0 % 0-10 Blood neutrophils automated count (number/volume) 9.1 10*3 1.8-7.8 Blood lymphocytes automated count (number/volume) 1.7 10*3 1.0-4.0 Blood monocytes automated count (number/volume) 0. 8 10*3 0.0-1.0 Automated eosinophil count 0.6 10*3/uL 0 .0-0.3 Automated blood basophil count (count/volume) 0.0 10*3/uL 0.0-0.1 Blood lactic acid measurement (moles/vol ume) - 10/19/19 12:15 Blood lactic acid measurement (moles/volume) 0.91 mmol/L 0.50-2.00 Encounters ACCT No. Visit Date/Time Discharge Status Pt. Type Provider Facility Loc./Unit Complaint [id number] 10/11/2019 09:00:00 10/11/2019 23:59: 59 CLS Outpatient [facility] [id number] 09/01/2019 08:20:00 Document Registration [id number] 06/28/2019 08:00:00 Document Registration [id number] 06/26/2018 09:14:00 Document Registration [id number] 06/26/2018 07:20:00 Document Registration [id number] 08/30/2019 09:19:00 23:59:59 CLS Outpatient NADIA SOTELO, ANA MARÍA V [facility] RAD FS C18.4 [id number] 05/03/2019 11:23:00 23:59:59 CLS Outpatient MARSHA SOTELO, NATHANAEL U [facility] RAD CKD STAGE 4 [id number] 08/18/2018 10:35:00 23:59:59 CLS Outpatient JOSEPHINE MARTINEZ [facility] CARD CHEST DISCOMFOR T,HTN [id number] 08/11/2018 10:45:00 23:59:59 CLS Outpatient NADIA SOTELO, ANA MARÍA V [facility] LAB FS COLON CANCER [id number] 08/14/2020 10:15:00 P EN Preadmit NADIA SOTELO, ANA MARÍA V [facility] RAD FS MALIGNANT NEOPLASM OF TRANSV ERSE COLON [id number] 10/19/2019 13:09:00 Document Registration
--- OUTSIDE RECORDS SUMMARY | 2019-10-19 13:15 | XMS REPORT ---
Author Author AMELIEBonniemagnolia BRENNAN [facility] Address [address] [place] [address] Care Team Providers Care Brand Executive Name Role Phone MIKA KINSEY Unavailable PROBLEMS Type Condition ICD9-CM Code CRW44-CM Code Onset Dates Condition S tatus SNOMED Code Problem Benign hypertension 401.1 11 Dec, 2016 0 36084121 Problem Dyslipidemia 272.4 11 Dec, 2016 0 3709 55343 Problem Tobacco use 305.1 Oct, 0 81115 3000 Problem Malignant neoplasm of descending colon 153.2 1 8 Nov, 2016 0 096142814 Problem Simple chronic bronchitis 491.0 Oct, 0 54652300 Problem CKD (chronic kidney disease) N18.9 Oct, 201 7 0 845579785 Problem Type 2 diabetes mellitus without complication 250.00 Oct, 0 574375290 Problem Chewing tobacco nicotine dependence, uncomplicated 305.1 Oct, 0 102513818 Problem JAMES on CPAP 327.23 Jan, 0 03275 009 Problem Leg edema, left 782.3 Oct, 0 2 50877520 Problem Hypothyroidism (acquired) 244.9 Nov, 0 14990395 Problem Congestive heart failure 428.0 Oct, 0 60224157 Problem Preoperative clearance V72.84 Nov, 0 844276305 Problem Cigarette nicotine dependence, uncomplicated F17.2 10 Oct, 0 812597216 Problem Type 2 diabetes mellitus without complication E11. 9 Oct, 0 597140798 Problem Preoperative clearance Z01.818 Nov, 0 902924932 Problem Hypothyroidism (acquired) E03.9 Nov, 0 28495144 Problem JAMES on CPAP G47.33 Jan, 0 55948 009 Problem Acute gout of right ankle 274.01 August, 0 20573617 Problem Simple chronic bronchitis J41.0 Oct, 0 82420628 Problem Dyslipidemia E78.5 Dec, 0 3709 69821 Problem Tobacco use Z72.0 13 Oct, 2016 0 85604 3000 Problem CKD (chronic kidney disease) 585.9 Oct, 201 7 0 957121201 Problem Allergic rhinitis due to animal hair and dander 477.2 Oct, 0 [id number] Problem Acute gout of right ankle M10.9 14 Aug, 2017 0 63925796 Problem Malignant neoplasm of descending colon C18.6 1 8 Nov, 2016 0 508420670 Problem Chewing tobacco nicotine dependence, uncomplicated F17.220 Oct, 0 778793479 Problem Cigarette nicotine dependence, uncomplicated 305.1 13 Oct, 2016 0 671590416 Problem Leg edema, left R60.0 13 Oct, 2017 0 2 57803858 Problem Hyperlipidemia, unspecified hyperlipidemia type E7 8.5 Active 92001744 Problem Congestive heart failure I50.9 Oct, 0 99780692 Problem JAMES (obstructive sleep apnea) G47.33 Active 25245467 Problem Allergic rhinitis due to animal hair and dander J3 0.81 Oct, 0 [id number] Problem Benign hypertension I10 11 Dec, 2016 0 59728794 Problem Controlled type 2 diabetes m ellitus without complication, without long- term current use of insulin E11.9 Active 054522931 Problem Congestive heart failure, un specified HF chronicity, unspecified heart failure type I50.9 Active 47086487 Problem Stage 2 chronic kidney disease N18.2 Active 923279909 Problem Essential hypertension I10 Active 23009833 ALLERGIES No Information ENCOUNTERS Encounter Location Date Diagnosis [place] [address] [facility] [id number] [address] [place] [id number] Sep, [facility] [address] [place] [address] Jul, Acute pain of right shoulder M25.511 and Morbid obesity E66.01 [facility] [address] [facility] [id number] [address] [place] [id number] Jul, Morbid obesity E66.01 ; Ches t discomfort R07.89 ; Exertional dyspnea R06.09 ; Essential hypertension I10 ; Hyperlipidemia, unspecified hyperlipidemia type E78.5 ; JAMES (obstructive sleep apnea) G47.33 and Swelling of both lower extremities M79.89 [place] [id number] [place] [address] Jun, [facility] [address] [place] [address] Jun, Morbid obesity E66.01 ; Hypertension, renal disease I12.9 and Controlled type 2 diabetes mellitus without complication, without long-term current use of insulin E11.[address] [address] May, Morbid obesity E66.01 ; Hypertension, renal disease I12.9 ; Controlled type 2 diabetes mellitus without complication, without long-term current use of insulin E11.9 and Congestive heart failure, unspecified HF chronicity, unspecified heart failure type I50.[address] [address] Apr, Lower extremity edema R60.0 and BMI 45.0-49.9, adult Z68.[address] [address] Apr, BMI 45.0-49.9, adult Z68.42 ; Congestive heart failure, unspecified HF chronicity, unspecified heart failure type I50.9 ; Edema of lower extremity R60.0 ; Controlled type 2 diabetes mellitus without complication, without long-term current use of insulin E11.9 ; Stage 2 chronic kidney disease N18.2 ; Cancer of left colon C18.6 and Essential hypertension I10 [address] [address] Apr, [facility] [address] [facility] [id number] [address] [place] [address] Mar, [facility] [address] [facility] [id number] [address] [place] [phone] Feb, [facility] [address] [facility] [id number] [address] [place] [phone] Jan, [facility] [address] [facility] [id number] [address] [place] [phone] Jan, [facility] [address] [facility] [id number] [address] [place] [phone] Jan, IMMUNIZATIONS No Known Immunizations SOCIAL HISTORY Never Assessed REASON FOR VISIT Lab (walk-in) PLAN OF CARE VITAL SIGNS MEDICATIONS Unknown Medications RESULTS No Results PROCEDURES Procedure Date Ordered Result Body Site Hemoglobin Test Send Out 0 dollar June 26, 2018 [facility] 2018 INSTRUCTIONS MEDICATIONS ADMINISTERED No Known Medications MEDICAL (GENERAL) HISTORY Type Description Date Medical History type II diabetes Medical History congestive heart failure Medical History malignant neoplasm of descending colon Medical History dyslipidemia Medical History Hypertension Medical History Chronic Kidney Disease Medical History Hypothyroidism Medical History hx Gout Medical History JAMES on CPAP Surgical History colon resection Hospitalization History surgery
[2019-10-19 13:16] LABS: CHLORIDE 99 MMOL/L (98-107); POTASSIUM 4.9 MMOL/L (3.6-5.0); SODIUM 134 MMOL/L (135-145)
[2019-10-19 13:17] LABS: CARBON DIOXIDE 17 MMOL/L (21-32)
[2019-10-19 13:18] LABS: ALANINE AMINOTRANSFERASE 47 U/L (0-55); ALBUMIN 3.8 GM/DL (3.2-4.5); ALKALINE PHOSPHATASE 49 U/L (40-136); BILIRUBIN,TOTAL 0.5 MG/DL (0.1-1.0); BUN/CREATININE RATIO 36; CALCIUM 9.2 MG/DL (8.5-10.1); CREATININE SERUM 3.43 MG/DL (0.60-1.30); GFR ESTIMATED 18; GLUCOSE 187 MG/DL (70-105); TOTAL PROTEIN 6.7 GM/DL (6.4-8.2)
[2019-10-19 13:25] LABS: BACTERIA,URINE NEGATIVE /HPF; BILIRUBIN,URINE NEGATIVE (NEGATIVE); CLARITY,URINE CLEAR; COLOR,URINE YELLOW; GLUCOSE, URINE (UA) NEGATIVE (NEGATIVE); KETONES,URINE NEGATIVE (NEGATIVE); LEUKOCYTE ESTERASE ,URINE NEGATIVE (NEGATIVE); NITRITE,URINE NEGATIVE (NEGATIVE); PH,URINE 5.5 (5-9); PROTEIN,URINE 2+ (NEGATIVE)
[2019-10-19] MEDS ORDERED: NS IV 1000 ML 1,000 ML IV STA (13:29)
[2019-10-19 15:00] VITALS: BP 120/62
== END 2019-10-19 15:00 | disposition short-term general hospital (02) ==
LOC: ER FS 11:39 → EDUNIT# 11:39 → ER FS 15:00
DX: N17.9 Acute kidney failure, unspecified (principal); N18.9 Chronic kidney disease, unspecified; E86.0 Dehydration; J44.9 Chronic obstructive pulmonary disease, unspecified; R53.1 Weakness; Z88.5 Allergy status to narcotic agent; Z91.048 Other nonmedicinal substance allergy status
CPT/HCPCS: 36415; 71045; 80053; 81000; 83605; 83880; 84484; 85025; 87040; 93005

== ENCOUNTER → 2020-01-17 | Outpatient (CLI) | payer MEDICARE, MEDICAID ==
--- NOTE | 2020-01-17 15:41 | Diagnostic Imaging Report ---
PROCEDURE: US Renal Bilateral. TECHNIQUE: Multiple real-time grayscale images were obtained over the kidneys in various projections bilaterally. INDICATION: Hydronephrosis. FINDINGS: The previous renal ultrasound exam performed on 05/03/2019 noted cysts associated with both kidneys but failed to show any sign of a solid renal mass or hydronephrosis. On this exam, both kidneys are visualized. The right kidney measures 11.8 x 5.4 x 6.1 cm while the left kidney is estimated to be 11.8 x 5.1 x 5.7 cm. The cysts associated with both kidneys seen on the prior study are again evident. The largest cyst on the right measures 2.8 x 2.9 x 3.0 cm while the largest cyst on the left is estimated to be 2.7 x 3.2 x 2.7 cm. The cysts have a generally benign appearance. There is still no solid renal mass identified nor is there any evidence for hydronephrosis. The renal cortices are thinned but normal in echogenicity. The urinary bladder was imaged during the course of the exam. There is no obvious bladder abnormality evident. IMPRESSION: 1. There is still no evidence for a solid renal mass or for an acute abnormality of either kidney. 2. There are multiple cysts involving both kidneys. 3. The urinary bladder is grossly unremarkable. Dictated by: Dictated on workstation # [id number]
== END ==
LOC: RAD 12:00
PROVIDERS: ATTEND Urology
DX: N13.30 Unspecified hydronephrosis (principal); N28.1 Cyst of kidney, acquired
CPT/HCPCS: 76770

== ENCOUNTER → 2020-09-11 | Outpatient (CLI) | payer MEDICARE, MEDICAID ==
--- NOTE | 2020-09-11 13:43 | Diagnostic Imaging Report ---
PROCEDURE: CT chest, abdomen, and pelvis without contrast. TECHNIQUE: Multiple contiguous axial images were obtained through the chest, abdomen, and pelvis without the use of intravenous contrast. Auto Exposure Controls were utilized during the CT exam to meet ALARA standards for radiation dose reduction. INDICATION: Colon carcinoma, one year follow-up. Correlation is made with prior CT abdomen and pelvis study from 08/30/2019. CT CHEST: No axillary lymphadenopathy is detected. No mediastinal or hilar lymphadenopathy is detected. No pericardial or pleural fluid is identified. No pulmonary nodules or masses are seen. There is some scarring or atelectasis in the left lower lobe. IMPRESSION: No evidence of thoracic lymphadenopathy or pulmonary metastatic disease. CT abdomen and pelvis: No discrete liver mass is identified. Gallbladder is unremarkable. Previously noted peripherally calcified mass posterior to the stomach measures 4.7 x 4.0 cm compared with 4.8 x 3.8 cm on prior. Pancreas and spleen are unremarkable. No adrenal mass is identified. Both kidneys again show some atrophy and demonstrate moderate hydroureteronephrosis. Both ureters are tortuous and dilated. Bladder remains trabeculated. A diverticulum in the right para-midline location persists. Prostate is normal in size. Aorta and iliac vessels are heavily calcified but nonaneurysmal. Small and large bowel loops appear to be normal caliber. There is no obstruction. There is no free fluid or fluid collection. No definite pelvic lymphadenopathy is seen. Bony structures are unremarkable. IMPRESSION: Continued stable CT abdomen and pelvis without contrast when compared with prior examination from one year earlier. No new abnormality is identified. No abdominal or pelvic lymphadenopathy or evidence of metastatic disease is detected. Dictated by: Dictated on workstation # [id number]
== END ==
LOC: RAD FS 12:56
PROVIDERS: ATTEND Internal Medicine Hematology & Oncology
DX: C18.4 Malignant neoplasm of transverse colon (principal)
CPT/HCPCS: 71250; 74176

== ENCOUNTER → 2021-09-20 | Outpatient (CLI) | payer MEDICARE, MEDICAID ==
[2021-09-20 11:30] LABS: BASOPHILS # (AUTO) 0.1 10^3/uL (0.0-0.1); BASOPHILS % (AUTO) 1 % (0-10); EOSINOPHILS # (AUTO) 0.4 10^3/uL (0.0-0.3); EOSINOPHILS % (AUTO) 4 % (0-10); HEMATOCRIT 47 % (40-54); HEMOGLOBIN 15.1 g/dL (13.3-17.7); LYMPHOCYTES # (AUTO) 1.9 10^3/uL (1.0-4.0); LYMPHOCYTES % (AUTO) 18 % (12-44); MEAN CORPUSCULAR HEMOGLOBIN 28 pg (25-34); MEAN CORPUSCULAR HGB CONC 32 g/dL (32-36); MEAN CORPUSCULAR VOLUME 86 fL (80-99); MEAN PLATELET VOLUME 8.8 fL (9.0-12.2); MONOCYTES # (AUTO) 0.6 10^3/uL (0.0-1.0); MONOCYTES % (AUTO) 6 % (0-12); NEUTROPHILS # (AUTO) 7.3 10^3/uL (1.8-7.8); NEUTROPHILS % (AUTO) 71 % (42-75); PLATELET COUNT 184 10^3/uL (130-400); WHITE BLOOD COUNT 10.3 10^3/uL (4.3-11.0)
--- NOTE | 2021-09-20 12:41 | Diagnostic Imaging Report ---
PROCEDURE: CT chest, abdomen, and pelvis without contrast. TECHNIQUE: Multiple contiguous axial images were obtained through the chest, abdomen, and pelvis without the use of intravenous contrast. Auto Exposure Controls were utilized during the CT exam to meet ALARA standards for radiation dose reduction. INDICATION: Colon cancer, transverse colon. A one-year follow-up. COMPARISON with CT chest, abdomen and pelvis performed 09/11/2020 CHEST: No lung mass or suspicious pulmonary nodule. There is no axillary, hilar or mediastinal adenopathy. There is no pleural or pericardial effusion. There is trace basilar partial atelectasis. No acute or suspect soft tissue or osseous chest wall pathology. There is coronary artery atherosclerotic vascular calcifications. The aorta is nonaneurysmal. ABDOMEN PELVIS: A peripherally calcified left upper quadrant retrogastric mass measures an unchanged 4.5 x 3.7 cm. The adrenals themselves appeared intrinsically unremarkable. The spleen normal in size. The unopacified liver nonfocal. There is no bowel or biliary tract obstruction. Bilateral hydroureteronephrosis with no opaque urinary tract calculi, unchanged with thickening and trabeculation as well as diverticulation of the urinary bladder wall. These findings are all unchanged. No perivesical edema. No identifiable urinary tract mass. The atherosclerotic aorta is nonaneurysmal. There is no abdominal pelvic, mesenteric or retroperitoneal lymphadenopathy. Rectus diastasis with bulging of the infraumbilical abdominal wall redemonstrated with a left lower quadrant nonobstructing hernia, unchanged. No suspicious lytic or sclerotic bony lesion. IMPRESSION: Peripherally calcified left upper quadrant retrogastric mass, stable. No thoracic, abdominal or pelvic lymphadenopathy. Chronic mild hydroureteronephrosis without stone with thick-walled trabeculated and diverticulated urinary bladder on a chronic basis, stable. Rectus diastasis with left lower quadrant focal nonobstructing hernia, stable. No new or acute appearing abnormality. Dictated by: Dictated on workstation # [id number]
[2021-09-20 14:12] LABS: CREATININE SERUM 3.31 MG/DL (0.60-1.30); POTASSIUM 4.3 MMOL/L (3.6-5.0)
[2021-09-20 14:13] LABS: BILIRUBIN,TOTAL 0.7 MG/DL (0.1-1.0); CALCIUM 9.9 MG/DL (8.5-10.1)
== END ==
LOC: RAD FS 10:52
PROVIDERS: ATTEND Internal Medicine Hematology & Oncology
DX: N13.30 Unspecified hydronephrosis (principal); N32.89 Other specified disorders of bladder; C18.4 Malignant neoplasm of transverse colon; R19.02 Left upper quadrant abdominal swelling, mass and lump
CPT/HCPCS: 36415; 71250; 74176; 80053; 82378; 83615; 85025